=== PATIENT | female | born 1925 | race Caucasian/White ===

== ENCOUNTER 2017-01-03 11:10 | Outpatient (CLI) | payer MEDICARE, BC | END 2017-01-03 11:11 | disposition EMS.NT | LOC: EMS 11:10 | PROVIDERS: ATTEND Surgery | DX: Z04.1 Encounter for examination and observation following transport accident (principal); V47.0XXA Car driver injured in collision with fixed or stationary object in nontraffic accident, initial encounter; Y92.488 Other paved roadways as the place of occurrence of the external cause ==

== ENCOUNTER 2017-05-07 13:25 | Outpatient (CLI) | payer MEDICARE, BC ==
--- NOTE | 2017-05-07 15:04 | XRAY Report ---
TWO-VIEW BILATERAL KNEES: 05/07/2017 CLINICAL INDICATION: Pain after fall. FINDINGS: Frontal and lateral views of both knees were obtained. Bilateral total knee replacements are in place. There is no evidence of acute fracture or hardware complication. Vascular calcificati ons are incidentally noted. IMPRESSION: BILATERAL TOTAL KNEE REPLACEMENTS. NO EVIDENCE OF FRACTURE OR HARDWARE COMPLICATION. JOB #: [id number] EXT JOB #:[id number]
--- NOTE | 2017-05-08 09:27 | XRAY Report ---
THREE-VIEW RIGHT SHOULDER: 05/07/2017 CLINICAL INDICATION: Pain after fall. FINDINGS: Internal and external rotational views and scapular Y views of the bilateral shoulders wer e obtained. There is moderate bilateral glenohumeral osteoarthritis. There is no evidence of acute fracture or dislocation. No radiopaque foreign body is seen in the soft tissues. IMPRESSION: MODERATE OSTEOARTHRITIS. NO EVIDENCE OF ACUTE FRACTURE. JOB #: [id number] EXT JOB #:[id number]
== END 2017-05-07 13:26 | disposition home or self-care (01) ==
LOC: DI 13:25
PROVIDERS: ATTEND Specialist
DX: M19.012 Primary osteoarthritis, left shoulder (principal); M19.011 Primary osteoarthritis, right shoulder; M25.561 Pain in right knee; M25.562 Pain in left knee; Z96.653 Presence of artificial knee joint, bilateral
CPT/HCPCS: 73565

== ENCOUNTER 2017-06-05 21:42 | Outpatient (CLI) | payer MEDICARE, BC | END 2017-06-05 21:43 | disposition critical access hospital (66) | LOC: EMS 21:42 | PROVIDERS: ATTEND Surgery | DX: R41.0 Disorientation, unspecified (principal); R53.1 Weakness; R53.83 Other fatigue; R19.7 Diarrhea, unspecified ==

== ENCOUNTER 2017-06-05 22:01 | Emergency (ER) | payer MEDICARE, BC ==
--- NOTE | 2017-06-06 00:17 | ED Physician Documentation ---
History of Present Illness - Stated complaint Stated Complaint: CONFUSION - Chief complaint Chief Complaint: Neuro - History obtained from History obtained from: Patient (spouse), Family - History of Present Illness Timing: Last night Pain level now: 0 Improved by: nothing Worsened by: no exacerbating factors - Additonal information Additional information: patient complains of nausea, vomiting, and one episode of diarrhea since last night. Her is concerned that she has been confused today and yesterday. Patient tells me she feels fine. Review of Systems Constitutional: reports: Reviewed and negative Eyes: reports: Reviewed and negative Cardiac: reports: Reviewed and negative Respiratory: reports: Reviewed and negative GI: reports: Nausea, Vomiting, Diarrhea. denies: Abdominal Pain : denies: Dysuria, Frequency Neurologic: reports: Confused, Reviewed and negative PD PAST MEDICAL HISTORY - Past Medical History Past Medical History: No Cardiovascular: Hypertension, High cholesterol HEENT: None - Past Surgical History Past Surgical History: Yes Ortho: Knee replacement - Present Medications Home Medications: Ambulatory Orders Medication Instructions Recorded Confirmed Ascorbic Acid [Vitamin C] 500 mg PO BID 01/07/13 04/20/17 Aspirin [Aspir 81] 81 mg PO DAILY 01/07/13 04/20/17 Calcium Carbonate [Tums] 300 mg PO DAILY PRN 01/07/13 04/20/17 Ferrous Sulfate, Dried [Iron] 0 mg PO DAILY 01/07/13 04/20/17 Furosemide [Lasix] 40 mg PO DAILY 01/07/13 04/20/17 Glucosamine Sulfate Dipot Chlr 1,000 mg PO DAILY 01/07/13 04/20/17 [Glucosamine] Losartan Potassium [Cozaar] 100 mg PO DAILY 01/07/13 04/20/17 Multivitamin [Multivitamins] 1 each PO DAILY 01/07/13 04/20/17 Omeprazole 20 mg PO DAILY 01/07/13 04/20/17 Potassium Chloride [K-Dur] 20 meq PO BID 01/07/13 04/20/17 Terazosin [Hytrin] 2 mg PO BID 01/07/13 04/20/17 - Allergies Allergies/Adverse Reactions: Allergies Allergy/AdvReac Type Severity Reaction Status Date / Time codeine [Codeine] Allergy Mild neuropathy Verified 12/30/12 11:10 hs walnuts Allergy Unknown unknown Uncoded 01/12/13 14:00 - Social History Does the pt smoke?: No Smoking Status: Never smoker Does the pt drink ETOH?: No Does the pt have substance abuse?: No - Immunizations Immunizations are current?: Yes - POLST Patient has POLST: No PD ED PE NORMAL - Vitals Vital signs reviewed: Yes - General General: Alert and oriented X 3, No acute distress, Well developed/nourished - HEENT HEENT: PERRL, EOMI - Cardiac Cardiac: RRR, No murmur, No gallop, No rub - Respiratory Respiratory: No respiratory distress, Clear bilaterally - Abdomen Abdomen: Soft, Non tender - Derm Derm: Normal color, Warm and dry - Extremities Extremities: No edema - Neuro Neuro: Alert and oriented X 3, 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, No motor deficit, No sensory deficit, Normal speech Results - Vitals Vitals: Oxygen O2 Source Room air - EKG (time done) No standard instances Rate: Rate (enter#) (74) Rhythm: NSR [place]: Normal Intervals: LBBB QRS: Normal Ischemia: Normal ST segments Other comments: Other comments (previous EKG not available, but LBBB was noted on report associated with ST last year) - Labs Labs: Laboratory Tests 06/05/17 06/06/17 06/06/17 22:08 00:30 01:20 WBC 5.8 RBC 3.29 L Hgb 10.1 L Hct 30.3 L MCV 92.0 MCH 30.8 MCHC 33.4 RDW 13.4 Plt Count 155 MPV 8.6 Neut # 4.9 Lymph # 0.4 L [place] # 0.5 Eos # 0.0 Baso # 0.0 Absolute Nucleated RBC 0.00 Nucleated RBC % 0.0 Sodium Potassium Chloride Carbon Dioxide Anion Gap BUN Creatinine Estimated GFR (MDRD) Glucose POC Whole Bld Glucose 139 H Calcium Total Bilirubin AST ALT Alkaline Phosphatase Troponin I Total Protein Albumin Globulin Albumin/Globulin Ratio Lipase Urine Color YELLOW Urine Clarity CLEAR Urine pH 6.0 Ur Specific [place] 1.020 Urine Protein NEGATIVE Urine Glucose (UA) NEGATIVE Urine Ketones NEGATIVE Urine Occult Blood TRACE-INTA Urine Nitrite NEGATIVE Urine Bilirubin NEGATIVE Urine Urobilinogen 0.2 (NORMAL) Ur Leukocyte Esterase NEGATIVE Ur Microscopic Review NOT INDICATED Urine Culture Comments NOT INDICATED 06/06/17 06/06/17 01:20 01:20 WBC RBC Hgb Hct MCV MCH MCHC RDW Plt Count MPV Neut # Lymph # [place] # Eos # Baso # Absolute Nucleated RBC Nucleated RBC % Sodium 133 L Potassium 4.1 Chloride 104 Carbon Dioxide 23 Anion Gap 6.0 BUN 29 H Creatinine 1.1 H Estimated GFR (MDRD) 47 L Glucose 131 H POC Whole Bld Glucose Calcium 8.5 Total Bilirubin 0.7 AST 20 ALT 14 Alkaline Phosphatase 66 Troponin I 0.10 Total Protein 6.5 L Albumin 3.3 Globulin 3.2 Albumin/Globulin Ratio 1.0 Lipase 21 L Urine Color Urine Clarity Urine pH Ur Specific [place] Urine Protein Urine Glucose (UA) Urine Ketones Urine Occult Blood Urine Nitrite Urine Bilirubin Urine Urobilinogen Ur Leukocyte Esterase Ur Microscopic Review Urine Culture Comments PD MEDICAL DECISION MAKING - ED course Complexity details: reviewed old records, reviewed results, re-evaluated patient , considered differential, d/w patient, d/w family Departure - Departure Disposition: 01 Home, Self Care Clinical Impression: Altered mental status Condition: Good Instructions: ED Confusion Follow-Up: Liliana Ruiz DO [Primary Care Provider] - AMAN KAPLAN [Physician No Access] - Discharge Date/Time: 06/06/17 02:50
[2017-06-06 00:47] LABS: BILIRUBIN,URINE NEGATIVE (NEGATIVE)
[2017-06-06 00:48] LABS: UA CHARGE (STRIP ONLY) YES; UR CULTURE IF IND NOT INDICATED
[2017-06-06 01:27] LABS: BASOPHILS % (AUTO) 0.3 %; EOSINOPHILS % (AUTO) 0.3 %; HCT - HEMATOCRIT 30.3 % (37.0-47.0); HGB - HEMOGLOBIN 10.1 g/dL (12.0-16.0); LYMPHOCYTES # (AUTO) 0.4 10^3/uL (1.5-3.5); LYMPHOCYTES % (AUTO) 6.2 %; MEAN CORPUSCULAR HEMOGLOBIN 30.8 pg (27.0-31.0); MEAN CORPUSCULAR HGB CONC 33.4 g/dL (32.0-36.0); MEAN PLATELET VOLUME 8.6 fL (7.9-10.8); MONOCYTES # (AUTO) 0.5 10^3/uL (0.0-1.0); MONOCYTES % (AUTO) 9.4 %; NEUTROPHILS # (AUTO) 4.9 10^3/uL (1.5-6.6); NEUTROPHILS % (AUTO) 83.8 %; RED BLOOD COUNT 3.29 10^6/uL (4.20-5.40); RED CELL DISTRIBUTION WIDTH 13.4 % (12.0-15.0); UNCORRECTED WHITE BLOOD COUNT 5.8 x10^3/uL; WHITE BLOOD COUNT 5.8 x10^3/uL (4.8-10.8)
[2017-06-06 01:37] LABS: BILIRUBIN,TOTAL 0.7 mg/dL (0.2-1.0); CALCIUM 8.5 mg/dL (8.5-10.3); CREATININE 1.1 mg/dL (0.4-1.0); POTASSIUM 4.1 mmol/L (3.5-5.0); TOTAL PROTEIN 6.5 g/dL (6.7-8.2)
[2017-06-06 02:53] VITALS: BP 156/61
== END 2017-06-06 02:50 | disposition home or self-care (01) ==
LOC: EDUNIT# → ED 22:01
DX: R41.0 Disorientation, unspecified (principal); I44.7 Left bundle-branch block, unspecified; R94.31 Abnormal electrocardiogram [ECG] [EKG]; I10 Essential (primary) hypertension; E78.00 Pure hypercholesterolemia, unspecified; Z79.82 Long term (current) use of aspirin
CPT/HCPCS: 36415; 80053; 81001; 81003; 83690; 84484; 85025; 87086; 93005; 99283; 99284